=== PATIENT | male | born 1995 | race Asian ===

== ENCOUNTER 2017-03-24 12:18 | Emergency (ER) | payer OTHER ==
[~2017-03-24] VITALS: Ht 167.6 cm; Wt 63.5 kg
== END 2017-03-24 13:31 | disposition home or self-care (01) ==
LOC: ED 12:18
DX: S16.1XXA Strain of muscle, fascia and tendon at neck level, initial encounter (principal); S20.212A Contusion of left front wall of thorax, initial encounter; S29.011A Strain of muscle and tendon of front wall of thorax, initial encounter; V43.52XA Car driver injured in collision with other type car in traffic accident, initial encounter
CPT/HCPCS: 99281